=== PATIENT | male | born 1980 | race American Indian/Alaskan Native ===

== ENCOUNTER 2018-07-16 01:03 | Emergency (ER) | payer OTHER ==
[2018-07-16] MEDS ORDERED: ASPIRIN PO ONE (01:20)
--- NOTE | 2018-07-16 01:44 | XRay Report ---
PROCEDURE: XR CHEST 1V AP TECHNIQUE: Chest radiograph single view. HISTORY: Chest Pain COMPARISONS: None . FINDINGS: Heart: Normal. Mediastinum/Vessels: Normal. Lungs/Pleural space: Normal. Bony thorax: No acute osseous abnormality. Life support devices: None. IMPRESSION: No acute cardiopulmonary abnormality. This document is electronically signed by Steven Abrams MD., July 16 2018 01:43:10 AM ET
[2018-07-16 02:16] LABS: Basophils # (Auto) 0.1 K/mm3 (0.0-0.1); Eosinophils # (Auto) 0.1 K/mm3 (0.0-0.4); Eosinophils % (Auto) 0.6 % (0.0-4.3); Hematocrit 42.6 % (35.5-45.6); Lymphocytes # (Auto) 2.8 K/mm3 (1.2-5.4); Lymphocytes % (Auto) 30.6 % (13.4-35.0); Mean Corpuscular HGB Conc 33 % (32-34); Mean Corpuscular Volume 84 fl (84-94); Monocytes # (Auto) 0.9 K/mm3 (0.0-0.8); Monocytes % (Auto) 10.1 % (0.0-7.3); Platelet Count 266 K/mm3 (140-440); Red Blood Count 5.09 M/mm3 (3.65-5.03); Red Cell Distribution Width 13.7 % (13.2-15.2)
[2018-07-16 02:28] LABS: BUN/Creatinine Ratio 18; Blood Urea Nitrogen 16 mg/dL (9-20); Calcium 9.5 mg/dL (8.4-10.2); Hemolysis Index 15
[2018-07-16] MEDS ORDERED: LOPRESSOR PO ONE (02:41)
--- NOTE | 2018-07-16 02:46 | Emergency Department Report ---
ED Chest Pain HPI - General Chief Complaint: Chest Pain Stated Complaint: CHEST PAIN, SHORTNESS OF BREATH Time Seen by Provider: 07/16/18 02:30 Source: patient, RN notes reviewed Mode of arrival: Ambulatory Limitations: No Limitations - History of Present Illness Initial Comments: This is a 38-year-old gentleman. The patient is not known to this provider previously. He does not have a local primary care doctor. He believes that he may have a history of hypertension but is not certain. He reports that in February 2018, he was evaluated in [facility] for chest pain and palpitations, and reports a normal cardiac stress test, and a normal echocardiogram. Today, the patient presents to the emergency room with a complaint of resolved nontraumatic central and left-sided chest pain. The pain started at 11:00 PM on the preceding day. It is now resolved. It did not radiate to the back, arms or neck. It lasted for around a half hour. He denies nausea, vomiting, diaphoresis. He denies exertional shortness of breath. He reports a sensation of heart racing, which "made my breathing funny." However, he indicates no exe rtional shortness of breath. He denies posterior leg pain, posterior leg swelling, recent surgery, recent travel, recent aspirin use. He indicates that there is no family history of cardiac disease, DVT, or pulmonary embolus. He reports that he incidentally feels anxious, feels like he may have anxiety. He ran out of his metoprolol, 50 mg, a while back. MD Complaint: chest pain -: Gradual Onset: during rest Pain Location: left chest Pain Radiation: none Severity: mild Severity scale (0 -10): 10 Quality: aching Consistency: now resolved Improves With: nothing Worsens With: nothing re: denies: nausea, vomting, diaphoresis, sense of impending doom Other Symptoms: palpitations. denies: cough, fever, syncope, rash, acid taste in mouth, leg swelling, burping Aspirin use within the Past 7 Days: (0) No - Related Data On Oral Contraceptives: No Previous Rx's Medication Instructions Recorded Last Taken Type Aspirin [Aspirin BABY CHEW TAB] 81 mg PO QDAY #30 tab.chew 07/16/18 Unknown Rx Metoprolol Tartrate 50 mg PO DAILY #30 07/16/18 Unknown Rx Allergies Allergy/AdvReac Type Severity Reaction Status Date / Time No Known Allergies Allergy Verified 07/16/18 02:32 Heart Score - HEART Score History: Slightly suspicious EKG: Non-specific Age: < 45 Risk factors: 1-2 risk factors Troponin: < normal limit HEART Score: 2 - Critical Actions Critical Actions: 0-3 pts:0.9-1.7%risk of adverse cardiac event.Candidate for discharge ED Review of Systems ROS: Stated complaint: CHEST PAIN, SHORTNESS OF BREATH Other details as noted in HPI Constitutional: denies: fever ENT: denies: epistaxis Respiratory: denies: cough Cardiovascular: chest pain, palpitations Gastrointestinal: denies: abdominal pain, nausea, vomiting Genitourinary: denies: dysuria Musculoskeletal: denies: back pain Skin: denies: lesions Neurological: denies: headache, numbness, paresthesias, confusion, abnormal gait, vertigo Psychiatric: as per HPI, anxiety ED Past Medical Hx - Past Medical History Previous Medical History?: Yes Hx Hypertension: Yes Additional medical history: Morbid Obesity, Heart palpitations - Surgical History Past Surgical History?: No - Social History Smoking Status: Never Smoker Substance Use Type: None - Medications Home Medications: Home Medications Medication Instructions Recorded Confirmed Last Taken Type Aspirin [Aspirin BABY CHEW TAB] 81 mg PO QDAY #30 tab.chew 07/16/18 Unknown Rx Metoprolol Tartrate 50 mg PO DAILY #30 07/16/18 Unknown Rx ED Physical Exam - General Limitations: No Limitations General appearance: alert, in no apparent distress, obese - Head Head exam: Present: atraumatic, normocephalic - Eye Eye exam: Present: normal appearance, EOMI. Absent: nystagmus - ENT ENT exam: Present: normal exam, normal orophraynx, mucous membranes moist, normal external ear exam - Neck Neck exam: Present: normal inspection, full ROM. Absent: tenderness, meningismus - Respiratory Respiratory exam: Present: normal lung sounds bilaterally. Absent: respiratory distress - Cardiovascular Cardiovascular Exam: Present: regular rate, normal rhythm, normal heart sounds. Absent: bradycardia, tachycardia, irregular rhythm, systolic murmur, diastolic murmur, rubs, gallop - GI/Abdominal GI/Abdominal exam: Present: soft. Absent: distended, tenderness, guarding, rebound, pulsatile mass - Rectal Rectal exam: Present: deferred - Extremities Exam Extremities exam: Present: normal inspection, full ROM, other (2+ pulses noted in the bilateral upper, lower extremities. Compartments soft. No long bony tenderness. The pelvis is stable.). Absent: pedal edema, joint swelling, calf tenderness - Back Exam Back exam: Present: normal inspection, full ROM. Absent: tenderness, CVA tenderness (R), paraspinal tenderness, vertebral tenderness - Neurological Exam Neurological exam: Present: alert, normal gait, other (Extraocular movements intact. Tongue midline. No facial droop. Facial sensation intact to light touch in the V1, V2, V3 distribution bilaterally. 5 and 5 strength in 4 extremities.. Sensation is intact to light touch in 4 extremities.). Absent: motor sensory deficit - Psychiatric Psychiatric exam: Present: anxious - Skin Skin exam: Present: warm, dry, intact, normal color. Absent: rash ED Course Vital Signs 07/16/18 07/16/18 07/16/18 01:17 02:10 02:47 Temperature 97.8 F 98.0 F Pulse Rate 112 H 74 78 Respiratory 20 16 Rate Blood Pressure 144/101 120/70 Blood Pressure 164/104 [Left] O2 Sat by Pulse 100 Oximetry 07/16/18 03:01 Temperature Pulse Rate 99 H Respiratory 13 Rate Blood Pressure 144/87 Blood Pressure [Left] O2 Sat by Pulse 96 Oximetry SABRINA score - Sabrina Score Age > 65: (0) No Aspirin use within the Past 7 Days: (0) No 3 or more CAD Risk Factors: (0) No 2 or more Angina events in past 24 hrs: (0) No Known CAD with more than 50% Stenosis: (0) No Elevated Cardiac Markers: (0) No ST Deviation Greater than 0.5mm: (0) No SABRINA Score: 0 ED Medical Decision Making - Lab Data Result diagrams: 07/16/18 02:07 07/16/18 02:07 Vital Signs 07/16/18 07/16/18 07/16/18 01:17 02:10 02:47 Temperature 97.8 F 98.0 F Pulse Rate 112 H 74 78 Respiratory 20 16 Rate Blood Pressure 144/101 120/70 Blood Pressure 164/104 [Left] O2 Sat by Pulse 100 Oximetry 07/16/18 03:01 Temperature Pulse Rate 99 H Respiratory 13 Rate Blood Pressure 144/87 Blood Pressure [Left] O2 Sat by Pulse 96 Oximetry Lab Results 07/16/18 07/16/18 07/16/18 Range/Units 02:07 02:07 02:48 WBC 9.1 (4.5-11.0) K/mm3 RBC 5.09 H (3.65-5.03) M/mm3 Hgb 14.0 (11.8-15.2) gm/dl Hct 42.6 (35.5-45.6) % MCV 84 (84-94) fl MCH 28 (28-32) pg MCHC 33 (32-34) % RDW 13.7 (13.2-15.2) % Plt Count 266 (140-440) K/mm3 Lymph % (Auto) 30.6 (13.4-35.0) % [place] % (Auto) 10.1 H (0.0-7.3) % Eos % (Auto) 0.6 (0.0-4.3) % Baso % (Auto) 1.0 (0.0-1.8) % Lymph # 2.8 (1.2-5.4) K/mm3 [place] # 0.9 H (0.0-0.8) K/mm3 Eos # 0.1 (0.0-0.4) K/mm3 Baso # 0.1 (0.0-0.1) K/mm3 Seg Neutrophils % 57.7 (40.0-70.0) % Seg Neutrophils # 5.3 (1.8-7.7) K/mm3 PT 13.5 (12.2-14.9) Sec. INR 0.97 (0.87-1.13) D-Dimer < 135 (0-234) ng/mlDDU Sodium 140 (137-145) mmol/L Potassium 4.1 (3.6-5.0) mmol/L Chloride 103.5 (98-107) mmol/L Carbon Dioxide 23 (22-30) mmol/L Anion Gap 18 mmol/L BUN 16 (9-20) mg/dL Creatinine 0.9 (0.8-1.5) mg/dL Estimated GFR > 60 ml/min BUN/Creatinine Ratio 18 % Glucose 144 H (75-100) mg/dL Calcium 9.5 (8.4-10.2) mg/dL Troponin T < 0.010 (0.00-0.029) ng/mL 07/16/18 Range/Units 03:23 WBC (4.5-11.0) K/mm3 RBC (3.65-5.03) M/mm3 Hgb (11.8-15.2) gm/dl Hct (35.5-45.6) % MCV (84-94) fl MCH (28-32) pg MCHC (32-34) % RDW (13.2-15.2) % Plt Count (140-440) K/mm3 Lymph % (Auto) (13.4-35.0) % [place] % (Auto) (0.0-7.3) % Eos % (Auto) (0.0-4.3) % Baso % (Auto) (0.0-1.8) % Lymph # (1.2-5.4) K/mm3 [place] # (0.0-0.8) K/mm3 Eos # (0.0-0.4) K/mm3 Baso # (0.0-0.1) K/mm3 Seg Neutrophils % (40.0-70.0) % Seg Neutrophils # (1.8-7.7) K/mm3 PT (12.2-14.9) Sec. INR (0.87-1.13) D-Dimer (0-234) ng/mlDDU Sodium (137-145) mmol/L Potassium (3.6-5.0) mmol/L Chloride (98-107) mmol/L Carbon Dioxide (22-30) mmol/L Anion Gap mmol/L BUN (9-20) mg/dL Creatinine (0.8-1.5) mg/dL Estimated GFR ml/min BUN/Creatinine Ratio % Glucose (75-100) mg/dL Calcium (8.4-10.2) mg/dL Troponin T < 0.010 (0.00-0.029) ng/mL - EKG Data -: EKG Interpreted by De EKG shows normal: sinus rhythm Rate: normal - EKG Data 07/16/18 04:01 EKG #1 demonstrates a sinus tachycardia, normal axis, QTC within normal limits, this is not consistent with an ST elevation myocardial infarction, rate 107 bpm EKG #2 demonstrates resolution of sinus tachycardia, current rate 97 bpm, low voltage inferiorly, normal axis, normal intervals, unremarkable EKG, this EKG is not consistent with ST elevation myocardial infarction. - Radiology Data Radiology results: pending, report reviewed, image reviewed X-ray of the chest is negative for acute disease. - Medical Decision Making Differential diagnosis, including not limited to: GERD, gastritis, hiatal hernia, pneumonia, acute coronary syndrome, pulmonary M [place], anxiety Assessment and plan: 38-year-old gentleman, low risk by well's criteria, no pulmonary embolus or DVT risk factors, negative d-dimer, low risk by the SABRINA score, low risk by heart score, reports a normal cardiac risk stratification within the past few months, with troponin negative 2, and EKG unchanged 2. The patient is afebrile with reassuring vital signs, and is at low risk for major adverse cardiac event. Patient is observed in the emergency room 4 hours without clinical decompensation. He is reevaluated multiple times, and is noted to be resting comfortable, on his stretcher, playing on his cellular phone. Explained to patient that he is at low risk for major adverse cardiac event, but that he will need to follow up with an outpatient equity research analyst. Patient verbalizes understanding. Patient will be discharged with a refill on his metoprolol, prescription for aspirin, instructions to follow up with local outpatient cardiology. Critical care attestation.: If time is entered above; I have spent that time in minutes in the direct care of this critically ill patient, excluding procedure time. ED Disposition Clinical Impression: History of chest pain, Medication refill Disposition: DC-01 TO HOME OR SELFCARE Is pt being admited?: No Does the pt Need Aspirin: No Condition: Good Instructions: Chest Pain (ED) Additional Instructions: Take the medications as directed. Follow up with a primary care doctor or equity research analyst within the next 3-4 days. When contacting the local cardiology group, informed the front office staff that answers the phone that the patient was seen in this emergency room for chest pain, and was evaluated to closely follow up with outpatient cardiology, for repeat outpatient evaluation, and/or stress test. Please return to the emergency room right away with new pain, worsened pain, migration of pain, projectile vomiting, change in mental status, confusion, inability to tolerate liquid feeds, new, worse or different symptoms. Referrals: [facility] [Provider Group] - 3-5 Days [facility] [Provider Group] - 3-5 Days [facility] [Provider Group] - 3-5 Days
[2018-07-16 03:30] LABS: INR 0.97 (0.87-1.13)
[2018-07-16 04:19] VITALS: BP 128/75
== END 2018-07-16 04:19 | disposition home or self-care (01) ==
LOC: EDBD 01:03 → ED 01:03
DX: R07.89 Other chest pain (principal); Z76.0 Encounter for issue of repeat prescription; I10 Essential (primary) hypertension; E66.01 Morbid (severe) obesity due to excess calories
CPT/HCPCS: 36415; 71045; 80048; 84484; 85025; 85379; 85610; 93005; 93010

== ENCOUNTER 2019-02-03 01:44 | Emergency (ER) | payer SELFPAY ==
[2019-02-03 02:13] VITALS: BP 143/92
[2019-02-03] MEDS ORDERED: KETOROLAC 30 MG/1 ML INJ IM ONE (02:43)
--- NOTE | 2019-02-03 02:46 | Emergency Department Report ---
ED Back Pain/Injury HPI - General Chief Complaint: Back Pain/Injury Stated Complaint: SHARP PAIN IN MIDDLE OF BACK TRAVELS TO FRONT Time Seen by Provider: 02/03/19 02:32 Source: patient Limitations: No Limitations - History of Present Illness Initial Comments: This is a 38-year-old male with no prior medical history who presents to ED complaining of right-sided thoracic back pain for the past 4 days. Patient denies radiation anywhere else. Patient states pain is localized to the right thoracic back. Patient denies any trauma heavy lifting or urinary symptoms. He denies chest pain, shortness of breath. Patient states that he is concerned because he has been exposed to mold for some time now and is worried that his pain is coming from that. MD Complaint: back pain - Related Data Previous Rx's Medication Instructions Recorded Last Taken Type Aspirin [Aspirin BABY CHEW TAB] 81 mg PO QDAY #30 tab.chew 07/16/18 Unknown Rx Metoprolol Tartrate 50 mg PO DAILY #30 07/16/18 Unknown Rx Mag Hydrox/Aluminum Hyd/Simeth 20 ml PO QID PRN #1 oral.susp 11/02/18 Unknown Rx [Maalox Advanced Suspension] Omeprazole Magnesium [PriLOSEC Otc] 20 mg PO QDAY #30 tablet.dr 11/02/18 Unknown Rx traMADol [Ultram 50 MG tab] 50 mg PO Q6HR PRN #14 tablet 11/02/18 Unknown Rx Cyclobenzaprine [Flexeril] 10 mg PO QHS #20 tablet 02/03/19 Unknown Rx Ibuprofen [Motrin] 800 mg PO Q8HR #30 tablet 02/03/19 Unknown Rx Allergies Allergy/AdvReac Type Severity Reaction Status Date / Time No Known Allergies Allergy Verified 07/16/18 02:32 ED Review of Systems ROS: Stated complaint: SHARP PAIN IN MIDDLE OF BACK TRAVELS TO FRONT Other details as noted in HPI Comment: All other systems reviewed and negative ED Past Medical Hx - Past Medical History Morbid Obesity, Heart palpitations ED Back Pain Physical Exam - Exam General: Vital signs noted. No distress. Alert and acting appropriately. Back/Abdomen: No Abdominal Tenderness, No Perithoracic Tenderness, No Perilumbar Tenderness, No Sacroiliac Tenderness, No Flank Tenderness, No Straight Leg Raise Pain Neuro: Yes Normal Sensation, Yes Normal DTR's, Yes Normal Gait, No Motor Weakness ED Course Vital Signs 02/03/19 01:53 Temperature 98.3 F Pulse Rate 99 H Respiratory 20 Rate Blood Pressure 143/92 O2 Sat by Pulse 97 Oximetry Ed Back Pain Tests - Tests Tests: Normal X Rays ED Medical Decision Making - Radiology Data Radiology results: report reviewed, image reviewed Fluoro Time In Minutes: CHEST 2 VIEWS 0238 INDICATION / CLINICAL INFORMATION: Right chest pain COMPARISON: 11/01/2018 FINDINGS: SUPPORT DEVICES: None. HEART / MEDIASTINUM: No significant abnormality. LUNGS / PLEURA: One of the PA views of the right chest is blurred by motion. No obvious areas of consolidation are seen. No pneumothorax. ADDITIONAL FINDINGS: No significant additional findings. IMPRESSION: No significant acute abnormality Signer Name: Naun Nava MD Signed: 02/03/2019 3:58 AM Workstation Name: [id number] Transcribed By: IMAN Dictated By: Naun Nava MD Electronically Authenticated By: Naun Nava MD Signed Date/Time: 02/03/19 0358 - Medical Decision Making This is a 38-year-old male who presents with myalgia of the thoracic muscles of the back Patient received Toradol for pain in the ED. Chest x-ray was obtained. Chest x-ray shows, see report above Patient is in no acute or respiratory distress at this time. Discussed findings with the patient. Discussed the patient to avoid lifting heavy objects for some time. Vital signs are normal. Critical care attestation.: If time is entered above; I have spent that time in minutes in the direct care of this critically ill patient, excluding procedure time. ED Disposition Clinical Impression: Thoracic back sprain Disposition: DC-01 TO HOME OR SELFCARE Is pt being admited?: No Does the pt Need Aspirin: No Condition: Stable Instructions: Musculoskeletal Pain (ED) Additional Instructions: Make sure to follow up with the primary care physician as discussed. Take all your medications as you've been prescribed. If you have any worsening symptoms or develop new symptoms please return to ED immediately. Prescriptions: Cyclobenzaprine [Flexeril] 10 mg PO QHS #20 tablet Ibuprofen [Motrin] 800 mg PO Q8HR #30 tablet Referrals: PRIMARY CARE, [Primary Care Provider] - 3-5 Days [facility] [Outside] - 3-5 Days [facility] [Outside] - 3-5 Days Forms: Work/School Release Form Time of Disposition: 04:14
--- NOTE | 2019-02-03 04:02 | XRay Report ---
CHEST 2 VIEWS 0238 INDICATION / CLINICAL INFORMATION: Right chest pain COMPARISON: 11/01/2018 FINDINGS: SUPPORT DEVICES: None. HEART / MEDIASTINUM: No significant abnormality. LUNGS / PLEURA: One of the PA views of the right chest is blurred by motion. No obvious areas of cons olidation are seen. No pneumothorax. ADDITIONAL FINDINGS: No significant additional findings. IMPRESSION: No significant acute abnormality Signer Name: Naun Nava MD Signed: 02/03/2019 3:58 AM Workstation Name: [id number]
== END 2019-02-03 04:33 | disposition home or self-care (01) ==
LOC: EDBD → ED 01:44
DX: S23.9XXA Sprain of unspecified parts of thorax, initial encounter (principal); X50.9XXA Other and unspecified overexertion or strenuous movements or postures, initial encounter; Y93.89 Activity, other specified; Y92.89 Other specified places as the place of occurrence of the external cause; Y99.8 Other external cause status
CPT/HCPCS: 71046; 93005; 93010; 96372; 99283; J1885